=== PATIENT | male | born 1965 | race Caucasian/White ===

== ENCOUNTER 2020-10-22 10:58 | Outpatient (REF) | payer OTHER, SELFPAY ==
[2020-10-22 14:38] LABS: Alanine Aminotransferase 14 U/L (0-40); Anion Gap 11 (12-20); Aspartate Amino Transferase 14 U/L (5-37); Blood Urea Nitrogen 13 mg/dL (9-16); Carbon Dioxide 32 mmol/L (22-29); Chloride 105 mmol/L (96-108); Cholesterol 123 mg/dL; Estimated Glomerular Filt Rate > 60; Glucose Fasting 109 mg/dL (60-99); HDL Cholesterol 46 mg/dL; LDL Cholesterol Calculated 65 mg/dl; Potassium 4.4 mmol/L (3.3-5.1); Sodium 144 mmol/L (135-145); Triglycerides 60 mg/dL
[2020-10-22 15:02] LABS: Vitamin D 25-OH Total 14.7 ng/mL (>30)
[2020-10-23 09:37] LABS: Mumps Virus IgG Antibody <9.00 AU/mL; Rubella IgG Antibody 2.07 Index; Rubeola IgG (Measles) >300.00 AU/mL
[2020-10-24 23:46] LABS: TS Negative Control Passed; TS Panel A 0; TS Panel B 0; TS Positive Control Passed; TSpotTB Negative (SeeBelow)
== END 2020-10-22 10:59 | disposition home or self-care (01) ==
LOC: HO.HMGCLDS 10:58
PROVIDERS: PCP Internal Medicine; Visit Provider Internal Medicine
DX: E78.5 Hyperlipidemia, unspecified (principal); R73.01 Impaired fasting glucose; I10 Essential (primary) hypertension; Z01.84 Encounter for antibody response examination
CPT/HCPCS: 36415; 80048; 80061; 82306; 84450; 84460; 86481; 86735; 86762; 86765

== ENCOUNTER 2021-02-03 07:48 | Day surgery (SDC) | payer OTHER, SELFPAY ==
[2021-01-29 11:55] VITALS: BMI 29.9
--- NOTE | 2021-01-31 08:06 | P.CONAN_ITS ---
Documented by User: Mary Argueta 01/31/21 08:06 HPI - Anesthesia Eval Consult details Narrative: 55yo M Colonoscopy [facility] Active Problems Active Problems: All Active Problems (Updated 01/29/21 @ 11:55 by Steph Trivedi) Vitamin D deficiency (Acute) Dry skin dermatitis (Acute) Immunity status testing (Acute) Impaired fasting glucose (Acute) Cataracts, both eyes (Acute) Dyslipidemia (Acute) Past Medical History Medical History (Updated 02/03/21 @ 09:09 by Isabelle Freeman) Cataracts, both eyes COVID-19 vaccine administered Dry skin dermatitis Dyslipidemia Immunity status testing Impaired fasting glucose Vitamin D deficiency Family History Family History Brother Hx of seizure disorder Surgical History Surgical History Hx of right cataract extraction Hx of vasectomy Social History Social History Are you a primary health care analyst to a significant other at home: No Do you presently have visiting nurse or other home services: No Alcohol intake: never Patient Tobacco Use Status: Never used Tobacco Use of substances other than those prescribed or required for medical reasons: No Have you been hit, kicked, punched, or otherwise hurt by someone within the past year? If so, by whom?: No Are you DNR?: No Advance Directives Information Provided: No Recently lost weight without trying: No Eating poorly because of decreased appetite: No Nutrition Risks: No Nutritional Risk Meds Allergies Allergy/AdvReac Type Severity Reaction Status Date / Time No Known Allergies Allergy Verified 02/03/21 08:22 Exam Exam Date and Time: January 31, 2021 0806 Height,Weight and Vital Signs: Height 5 ft 5 in Weight 81.647 kg Assessment and Plan Assessment Anesthesia Assessment: Chart Reviewed Documented by User: Isabelle Freeman 02/03/21 09:11 PMFSH Past Medical History Medical History (Updated 02/03/21 @ 09:09 by Isabelle Freeman) Cataracts, both eyes COVID-19 vaccine administered Dry skin dermatitis Dyslipidemia Immunity status testing Impaired fasting glucose Vitamin D deficiency Family History Family History Brother Hx of seizure disorder Family history of problems with anesthesia: No Surgical History Surgical History Hx of right cataract extraction Hx of vasectomy History of Problems with Anesthesia: No Social History Social History Are you a primary health care analyst to a significant other at home: No Do you presently have visiting nurse or other home services: No Alcohol intake: never Patient Tobacco Use Status: Never used Tobacco Use of substances other than those prescribed or required for medical reasons: No Have you been hit, kicked, punched, or otherwise hurt by someone within the past year? If so, by whom?: No Are you DNR?: No Advance Directives Information Provided: No Recently lost weight without trying: No Eating poorly because of decreased appetite: No Nutrition Risks: No Nutritional Risk Meds Allergies Allergy/AdvReac Type Severity Reaction Status Date / Time No Known Allergies Allergy Verified 02/03/21 08:22 Exam Height,Weight and Vital Signs: Vital Signs Temp Pulse Resp BP Pulse Ox 02/03/21 08:26 97.5 F 57 18 132/84 96 Airway Mallampati Class: II TM Dist: >3cm Neck ROM: Full Loose/Missing/Broken Teeth: No Heart: RRR Lungs: CTAB Assessment and Plan Assessment Anesthesia Assessment: Anesthesia Plan Discussed and Chart Reviewed Final Anesthetic Review NPO: Yes ASA Class: II Final Preanesthetic Review: No Changes in Pt Med Stat, Meds/Allgs Chart Reviewed, Consent Obtained/Reviewed and Anes Risks/Benef Reviewed Patient Risk: Low Procedure Risk: Low Assessment/Block/Sedation in SS: Assess/Block/Sedation-SS Anesthetic Plan Anesthetic Plan: MAC: Disposition: Standard PACU
[2021-02-03 08:26] VITALS: BP 132/84; PULSE 57; RESP 18; TEMP 36.4; O2SAT 96
[2021-02-03] MEDS: Lactated Ringers 1,000 ML 100 ML IVCONT (08:46)
--- NOTE | 2021-02-03 10:02 | P.BOP_ITS ---
Brief Operative Note Date of Service: 02/03/21 Pre-op diagnosis: Screening Post-op diagnosis: other (Colon polyp) Procedure: Colonoscopy to the cecum with snare polypectomy Surgeon: Estuardo Cook Anesthesia: MAC Was an Central Scheduler used for this Procedure?: No Estimated blood loss (mL): 0 Pathology: other (A. Polyp at 20cm) Condition: stable Disposition: PACU
[2021-02-03 10:04] VITALS: BP 108/79; PULSE 59; RESP 16; TEMP 36.4; O2SAT 100
[2021-02-03 10:17] VITALS: BP 122/75; PULSE 59; RESP 18; O2SAT 96
[2021-02-03 10:29] VITALS: BP 121/71; PULSE 55; RESP 18; TEMP 36.6; O2SAT 96
--- NOTE | 2021-02-03 20:49 | OP_ITS ---
SURGEON: Estuardo Cook MD INDICATIONS: The patient presents for evaluation of colorectal cancer screening. Full consent has been obtained from him for this, including risks of bleeding and perforation. PREOPERATIVE DIAGNOSIS: Colorectal cancer screening. POSTOPERATIVE DIAGNOSIS: PROCEDURE PERFORMED: Colonoscopy to the cecum and terminal ileum with snare polypectomy. ESTIMATED BLOOD LOSS: COMPLICATIONS: ANESTHESIA: Monitored anesthesia care. ASSISTANTS: SPECIMENS: POSTOPERATIVE DIAGNOSES: Colorectal cancer screening, colon polyp, small internal hemorrhoids. DESCRIPTION OF PROCEDURE: The patient was placed in the left lateral decubitus position. The digital rectal exam revealed no abnormalities. The Olympus video pediatric colonoscope was entered into the rectum and advanced easily to the cecum. Once in the cecum, I did identify normal-appearing cecal pouch with appendiceal orifice and a normal-appearing ileocecal valve. The terminal ileum was cannulated and appeared normal. The scope was slowly withdrawn back in the colon. The entire cecum and ileocecal valve appeared normal. The scope was slowly withdrawn assessing all mucosal surfaces carefully. Preparation was excellent. At 20 cm, was an approximately 8 mm polyp, which was snared and recovered by suction. The polypectomy site appeared clean, without any sign of residual polyp nor bleeding. I did not visualize any other polyps, colitis, nor angiodysplasia. In the rectum, scope was retroflexed visualizing small internal hemorrhoids, but no other pathology. The rectal mucosa appeared normal. The scope was straightened out and withdrawn from the patient. He tolerated the procedure well and was returned to the recovery area in stable condition. IMPRESSION: 1. Colon polyp, status post snare polypectomy. 2. Small internal hemorrhoids. PLAN: The results of the pathology will be checked. If the polyp is a tubular adenoma, I would recommend a followup colonoscopy in 5 years. He was advised not to use any aspirin and NSAIDs for 1 week. If the polyp was only hyperplastic and/or inflammatory polyp, I would then recommend a repeat colonoscopy in 10 years instead. MD RIGO Marshall/KINGA / [id number]
== END 2021-02-03 11:10 | disposition home or self-care (01) ==
PROVIDERS: PCP Internal Medicine; Visit Provider Internal Medicine
PROC: 0DJD8ZZ Inspection of Lower Intestinal Tract, Via Natural or Artificial Opening Endoscopic (ICD-10-PCS; CPT 45378; principal; 2021-02-03 09:10)
DX: Z12.11 Encounter for screening for malignant neoplasm of colon (principal); R19.09 Other intra-abdominal and pelvic swelling, mass and lump; D12.5 Benign neoplasm of sigmoid colon; K64.8 Other hemorrhoids; Z79.899 Other long term (current) drug therapy
CPT/HCPCS: 45385; 88305

== ENCOUNTER → 2021-02-28 09:41 | Outpatient (BNVA) | payer OTHER, SELFPAY | PROVIDERS: PCP Internal Medicine; Visit Provider Surgery ==

== ENCOUNTER 2021-03-12 08:17 | Outpatient (REF) | payer OTHER, SELFPAY ==
--- NOTE | ~2021-03-12 | US_ITS ---
EXAMINATION: US PELVIS, LIMITED/FOLLOWUP CLINICAL INFORMATION: Unilateral inguinal hernia. COMPARISON: None TECHNIQUE: Ultrasound of the left inguinal region was performed with the patient in the supine and standing upright position. FINDINGS: There is a defect seen in the abdominal wall medial to the iliac vessels. This contains peristalsing bowel. This is difficult to measure. This measures approximately 5 cm. This is more superior and medial than expected location of an inguinal hernia. US/US pelvic limited IMPRESSION: Left groin hernia containing bowel. This is more superior and medial than expected location of an inguinal hernia.
== END 2021-03-12 08:18 | disposition home or self-care (01) ==
LOC: HO.HMGCX 08:17
PROVIDERS: PCP Internal Medicine; Visit Provider Surgery
DX: K40.90 Unilateral inguinal hernia, without obstruction or gangrene, not specified as recurrent (principal)
CPT/HCPCS: 76857

== ENCOUNTER → 2021-03-20 09:20 | Outpatient (BNVA) | payer OTHER, SELFPAY | PROVIDERS: PCP Internal Medicine; Referring Provider Internal Medicine; Visit Provider Surgery ==

== ENCOUNTER 2021-04-19 09:39 | Outpatient (REF) | payer OTHER, SELFPAY ==
[2021-04-19 12:01] LABS: Alanine Aminotransferase 16 U/L (0-40); Aspartate Amino Transferase 15 U/L (5-37); Cholesterol 123 mg/dL; HDL Cholesterol 37 mg/dL; LDL Cholesterol Calculated 72 mg/dl; Triglycerides 70 mg/dL
[2021-04-19 12:24] LABS: Vitamin D 25-OH Total 52.6 ng/mL (>30)
== END 2021-04-19 09:40 | disposition home or self-care (01) ==
LOC: HO.HMGCLDS 09:39
PROVIDERS: PCP Internal Medicine; Visit Provider Internal Medicine
DX: E55.9 Vitamin D deficiency, unspecified (principal); E78.5 Hyperlipidemia, unspecified
CPT/HCPCS: 36415; 80061; 82306; 84450; 84460

== ENCOUNTER 2021-10-03 09:36 | Day surgery (SDC) | payer OTHER, SELFPAY ==
[2021-09-29 15:11] VITALS: BMI 29.2
[2021-09-29 15:24] VITALS: BMI 30.7
--- NOTE | 2021-10-02 10:34 | P.CONAN_ITS ---
Documented by User: Mary Argueta NP 10/02/21 10:35 HPI - Anesthesia Eval Consult details Narrative: 55yo M for Left Hernia Repair Inguinal with Mesh PMFSH Active Problems Active Problems: All Active Problems (Updated 04/22/21 @ 09:59 by Shara Stone MD) Tubular adenoma of colon (Acute) Left inguinal hernia (Acute) Dry skin dermatitis (Acute) Impaired fasting glucose (Acute) Cataracts, both eyes (Acute) Dyslipidemia (Acute) Past Medical History Medical History Cataracts, both eyes Dry skin dermatitis Dyslipidemia Impaired fasting glucose Tubular adenoma of colon Vitamin D deficiency Family History Family History Brother Hx of seizure disorder Family history of problems with anesthesia: No Surgical History Surgical History Hx of colonoscopy Hx of right cataract extraction Hx of vasectomy History of Problems with Anesthesia: No Social History Social History Housing: House Are you a primary child adolescent care to a significant other at home: No Do you presently have visiting nurse or other home services: No Alcohol intake: never Patient Tobacco Use Status: Never used Tobacco e-Cigarette/Vaping Use: Never Used Second Hand Smoke Exposure: No Use of substances other than those prescribed or required for medical reasons: No Are you DNR?: No Advance Directives: No Advance Directives Information Provided: Yes Advance Directives on File: No Recently lost weight without trying: No Poor oral hygiene: No service: No Current occupational status: employed Meds Allergies Allergy/AdvReac Type Severity Reaction Status Date / Time No Known Allergies Allergy Verified 04/22/21 09:40 Home Medications Medication Instructions Recorded Confirmed Last Taken Type cholecalciferol 25 mcg PO DAILY 04/22/21 09/29/21 Unknown History (vitamin D3) 25 mcg (1,000 unit) capsule Exam Exam Date and Time: October 02, 2021 1034 Height,Weight and Vital Signs: Height 5 ft 5 in Weight 83.915 kg Assessment and Plan Assessment Anesthesia Assessment: Chart Reviewed Final Anesthetic Review Family History of Problems with Anesthesia: No History of Problems with Anesthesia: No Documented by User: Sarah Hess MD 10/03/21 11:23 PMFSH Past Medical History Medical History Cataracts, both eyes Dry skin dermatitis Dyslipidemia Impaired fasting glucose Tubular adenoma of colon Vitamin D deficiency Family History Family History Brother Hx of seizure disorder Surgical History Surgical History Hx of colonoscopy Hx of right cataract extraction Hx of vasectomy Social History Social History Housing: House Are you a primary child adolescent care to a significant other at home: No Do you presently have visiting nurse or other home services: No Alcohol intake: never Patient Tobacco Use Status: Never used Tobacco e-Cigarette/Vaping Use: Never Used Second Hand Smoke Exposure: No Use of substances other than those prescribed or required for medical reasons: No Are you DNR?: No Advance Directives: No Advance Directives Information Provided: Yes Advance Directives on File: No Recently lost weight without trying: No Poor oral hygiene: No service: No Current occupational status: employed Meds Allergies Allergy/AdvReac Type Severity Reaction Status Date / Time No Known Allergies Allergy Verified 04/22/21 09:40 Home Medications Medication Instructions Recorded Confirmed Last Taken Type cholecalciferol 25 mcg PO DAILY 04/22/21 09/29/21 Unknown History (vitamin D3) 25 mcg (1,000 unit) capsule Exam Airway Mallampati Class: II TM Dist: >3cm Neck ROM: Full Loose/Missing/Broken Teeth: No Heart: RRR Lungs: CTA Assessment and Plan Final Anesthetic Review NPO: Yes ASA Class: II Final Preanesthetic Review: Meds/Allgs Chart Reviewed, Consent Obtained/Reviewed and Anes Risks/Benef Reviewed Patient Risk: Low Procedure Risk: Low Anesthetic Plan Anesthetic Plan: GA Disposition: Standard PACU
[2021-10-03] VITALS (10 sets, daily range): BP systolic 119–143; BP diastolic 70–88; PULSE 59–79; RESP 16–20; TEMP 36.4–36.7; O2SAT 92–99
[2021-10-03] MEDS: Lactated Ringers 1,000 ML 100 ML IVCONT (10:25)
--- NOTE | 2021-10-03 14:15 | W.PM.OPN ---
Operative Note Operative Note Date of Service: 10/03/21 Narrative: Preoperative diagnosis: Left inguinal hernia Postoperative diagnosis: Same Procedure: Repair of left inguinal hernia Surgeon: Dony Hamilton MD Fuel Efficient Aircraft Designer: Estrella Barba PA-C Anesthesia: General LMA Indications for procedure: 55 year old male patient with an enlarging left inguinal hernia which increases with lifting and straining and reduces with light pressure. Operative findings:. Patient found to have a large indirect sliding hernia. This was repaired using a extended large PHS mesh Specimen: Lipoma of the cord, hernia sac Estimated blood loss: 10 mL Complications: None Procedure details: Patient was brought to the OR and placed in a supine position. After administering general anesthesia the patient's abdomen was prepped with ChloraPrep and draped in a sterile fashion. A surgical time-out was called the consent confirmed. Patient received preoperative antibiotics and Venodyne boots were in place. Local anesthesia consisting of 0.5% Sensorcaine with epinephrine was infiltrated over the leftinguinal ligament. Incision was then made in oblique fashion over the inguinal ligament. This carried out through subcutaneous tissue past Iain's fashion up to the external oblique aponeurosis. Additional local was infiltrated below the external oblique aponeurosis. This was then incised with a scalpel wide with the Metzenbaum scissors. Spermatic cord was then dissected free from the surrounding inguinal canal and retracted using a [place] drain. The floor of the inguinal canal was examined and no direct hernia was identified. Fibers of the cremasteric muscle were then and an indirect sac was identified. This was dissected down to the internal ring. The sac was then opened and the contents reduced. The sac was found to contain a sliding hernia. A pursestring of 0 Polysorb suture was used to close the hernia sac and the sac divided above this. This was sent as a specimen labeled hernia sac. Also a lipoma of the cord was adjacent to the hernia sac and entered into the internal ring. This was dissected down to the internal ring ligated and divided. This was sent as lipoma of the cord. The hernia sac was plicated to the internal oblique aponeurosis and muscle using a 0 Polysorb suture and a free needle. Attention was then directed to the direct space which was divided between Allis clamps. The preperitoneal space was then created. This was opened further using an open Ray-Stacia sponge. A large extended PHS mesh was then obtained. The circular underlay was placed into the preperitoneal space and deployed. The overlay was then secured to the pubic tubercle conjoined tendon shelving edge of the inguinal ligament using interrupted 0 Polysorb sutures. A slit was made in the mesh and the mesh were wrapped around the spermatic cord at the internal ring. This was then secured to the shelving edge of the inguinal ligament using the 0 Polysorb suture. This was felt to be loose enough to allow the tip of an index finger to pass. Wounds were checked for hemostasis. Wounds were irrigated with saline solution and suctioned dry. External oblique aponeurosis was then closed using a running 2 0 Polysorb suture. Iain's fascia and dermis reapproximated using interrupted 3-0 Polysorb sutures. Skin was then closed using a running subcuticular 4-0 Polysorb suture. Steri-Strips 2 x 2 gauze and Tegaderm were then applied. The patient tolerated the procedure well. Sponge, instrument, needle counts reported as correct. Patient was transferred to PACU in stable condition.
== END 2021-10-03 16:35 | disposition home or self-care (01) ==
PROVIDERS: PCP Internal Medicine; Visit Provider Surgery
PROC: (CPT 49525; principal; 2021-10-03 11:40)
DX: K40.90 Unilateral inguinal hernia, without obstruction or gangrene, not specified as recurrent (principal); D17.6 Benign lipomatous neoplasm of spermatic cord; E78.5 Hyperlipidemia, unspecified; R73.01 Impaired fasting glucose; E55.9 Vitamin D deficiency, unspecified; Z79.899 Other long term (current) drug therapy
CPT/HCPCS: 49525; 88302; 88304; C1781; J0690; J1100; J1170; J1885; J2250; J2405; J3010

== ENCOUNTER → 2021-10-16 13:07 | Outpatient (BNVA) | payer OTHER, SELFPAY | PROVIDERS: PCP Internal Medicine; Referring Provider Internal Medicine; Visit Provider Surgery ==

== ENCOUNTER → 2021-10-28 09:12 | Outpatient (BNVA) | payer OTHER, SELFPAY | PROVIDERS: PCP Internal Medicine; Referring Provider Internal Medicine; Visit Provider Surgery ==

== ENCOUNTER 2022-06-01 09:03 | Outpatient (REF) | payer OTHER, SELFPAY ==
[2022-06-01 11:56] LABS: Alanine Aminotransferase 15 U/L (0-40); Aspartate Amino Transferase 16 U/L (5-37); Cholesterol 150 mg/dL; Glucose Fasting 121 mg/dL (60-99); HDL Cholesterol 45 mg/dL; LDL Cholesterol Calculated 95 mg/dl; Triglycerides 51 mg/dL
[2022-06-01 12:07] LABS: Vitamin D 25-OH Total 59.1 ng/mL (>30)
[2022-06-01 12:10] LABS: Estimated Average Glucose 120 mg/dL; Hemoglobin A1c % 5.8 %
== END 2022-06-01 09:04 | disposition home or self-care (01) ==
LOC: HO.HMGCLDS 09:03
PROVIDERS: PCP Internal Medicine; Visit Provider Internal Medicine
DX: E78.5 Hyperlipidemia, unspecified (principal); R73.01 Impaired fasting glucose; Z86.39 Personal history of other endocrine, nutritional and metabolic disease
CPT/HCPCS: 36415; 80061; 82306; 82947; 83036; 84450; 84460

== ENCOUNTER 2022-09-03 09:47 | Outpatient (REF) | payer OTHER, SELFPAY ==
[2022-09-03 11:54] LABS: Estimated Average Glucose 117 mg/dL; Hemoglobin A1C 148.9149 umol/L; Hemoglobin A1c % 5.7 %
[2022-09-03 12:19] LABS: Alanine Aminotransferase 15 U/L (0-40); Aspartate Amino Transferase 15 U/L (5-37); Cholesterol 127 mg/dL; Glucose Fasting 121 mg/dL (60-99); HDL Cholesterol 43 mg/dL; LDL Cholesterol Calculated 74 mg/dl; Triglycerides 50 mg/dL
== END 2022-09-03 09:48 | disposition home or self-care (01) ==
LOC: HO.HMGCLDS 09:47
PROVIDERS: PCP Internal Medicine; Visit Provider Internal Medicine
DX: Z01.84 Encounter for antibody response examination (principal); R73.01 Impaired fasting glucose; E78.5 Hyperlipidemia, unspecified
CPT/HCPCS: 36415; 80061; 82947; 83036; 84450; 84460; 86735

== ENCOUNTER 2023-05-10 08:53 | Outpatient (AMB) | payer OTHER, SELFPAY ==
--- NOTE | 2023-05-10 08:55 | MHC.OFFVIS ---
Intake Intake Visit Reasons: New Pt - Left Elbow Pain - Requesting Inj Intake Note: Silverio is a 57 year old right hand dominant male who presents today with complaints of left elbow pain. He would like an injection today as he had one with a different doctor in the past. Allergies No Known Allergies Allergy (Verified 05/10/23 08:57) Medication List - Last Reconciled 05/10/23 by Kate Iverson RN atorvastatin 10 mg PO DAILY cholecalciferol (vitamin D3) 25 mcg PO DAILY HPI New Pt - Left Elbow Pain - Requesting Inj HPI Details This is a 57-year-old gentleman with a 2 month history of bilateral lateral elbow pain. He describes difficulty lifting objects specially with left hand. 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 He localizes most of his pain to his left lateral epicondyle. [facility] Medical History (Updated 05/10/23 @ 09:16 by Larry Delarosa MD) Tubular adenoma of colon Vitamin D deficiency Dry skin dermatitis Impaired fasting glucose Cataracts, both eyes Dyslipidemia Surgical History (Updated 09/15/22 @ 11:31 by Shara Stone MD) S/P left inguinal hernia repair (10/03/21) Hx of colonoscopy Hx of right cataract extraction Hx of vasectomy Family History Brother Hx of seizure disorder Social History Housing: House Are you a primary health care marketing specialist to a significant other at home: No Do you presently have visiting nurse or other home services: No Alcohol intake: never Patient Tobacco Use Status: Never used Tobacco e-Cigarette/Vaping Use: Never Used Second Hand Smoke Exposure: No service: No Current occupational status: employed Cognitive needs: No Hearing needs: No Vision needs: Yes Physical Exam Const General: cooperative, healthy appearing, no acute distress, well developed and alert HEENT Head: Yes normal to inspection, Yes normocephalic and Yes atraumatic Mouth: moist mucous membranes Eyes General: appearance normal, both eyes and all related structures EOM: EOMs intact bilaterally Chest Other: no audible wheezing. Resp Other: No audible wheezing Effort & Inspection: normal respiratory effort Cardio Other: Radial pulse palpable with no rythmic abnormalities Back/Spine/Pelvis Cervical Spine: normal cervical lordosis Skin General skin exam: no rashes or lesions noted Neuro General: no focal motor deficits Extrem Other: Left elbow with full range of motion. Positive dynamic resisted wrist flexion test and tenderness over the lateral epicondyle Psych Appearance: grossly normal and well kempt Mental Status: mental status grossly normal Speech and movement: Normal speech and movement present Affect: normal affect Attitude: cooperative Results Reviewed Results Reviewed: 05/10/23 08:59 BUPivacaine MPF 0.25 % [Sensorcaine-MPF 0.25% 10 ML] 10 ml .ROUTE .STK-MED ONE Lidocaine HCl 1 % [Xylocaine 1 %] 2 ml .ROUTE .STK-MED ONE dexAMETHasone sod phosphate [Decadron] 4 mg .ROUTE .STK-MED ONE Assessment & Plan Assessment & Plan (1) Lateral epicondylitis of left elbow: Code(s): M77.12 - Lateral epicondylitis, left elbow Plan: This is a 57-year-old gentleman with left lateral epicondylitis. I reviewed the pathophysiology of this condition with him. I recommend avoidance of excessive lifting activities. We did discuss injections which we deferred on for now and we will try to get a counterforce brace. We are currently out of stock in these and I recommended he order one off [employer]. If he continues to have pain are his pain worsens he will contact me and we will consider injection. Coding Level of Care Code New Pt Level 3 (03856) Diagnoses Lateral epicondylitis of left elbow M77.12
== END 2023-05-10 09:16 | disposition home or self-care (01) ==
PROVIDERS: PCP Internal Medicine; Visit Provider Orthopaedic Surgery
DX: M77.12 Lateral epicondylitis, left elbow (principal)
CPT/HCPCS: 99203; 99213

== ENCOUNTER → 2023-05-10 08:53 | Outpatient (BNVA) | payer OTHER, SELFPAY | PROVIDERS: PCP Internal Medicine; Visit Provider Orthopaedic Surgery | DX: M77.12 Lateral epicondylitis, left elbow (principal) | CPT/HCPCS: J1100 ==

== ENCOUNTER 2023-11-20 06:31 | Outpatient (REF) | payer OTHER, SELFPAY ==
[2023-11-20 11:31] LABS: Estimated Average Glucose 120 mg/dL; Hemoglobin A1c % 5.8 % (<6.0)
[2023-11-20 11:41] LABS: Alanine Aminotransferase 22 U/L (0-40); Aspartate Amino Transferase 21 U/L (5-37); Cholesterol 122 mg/dL (<200); HDL Cholesterol 42 mg/dL (>40); LDL Cholesterol Calculated 65 mg/dL (<100); Triglycerides 75 mg/dL (<150)
== END 2023-11-20 06:32 | disposition home or self-care (01) ==
LOC: HO.HMGCLDS 06:31
PROVIDERS: PCP Internal Medicine; Visit Provider Internal Medicine
DX: E78.5 Hyperlipidemia, unspecified (principal); R73.01 Impaired fasting glucose
CPT/HCPCS: 36415; 80061; 82306; 83036; 84450; 84460

== ENCOUNTER 2024-03-28 10:01 | Outpatient (AMB) | payer OTHER, SELFPAY ==
--- NOTE | 2024-03-28 10:26 | A.OFFPC_ITS ---
Vital Signs 03/28/24 10:41 Height 5 ft 5 in Weight 192 lb BMI 31.9 BP 144/78 H Blood Pressure Location Rt brachial Position Sitting Pulse 62 Pulse Source Pulse Oximeter Pulse Oximetry (%) 98 Oxygen Delivery Method Room Air Intake Visit Reasons: pe Intake Note: Pt is here today for his PE: Last colonoscopy 02/03/21 Allergies No Known Allergies Allergy (Verified 03/28/24 11:03) Medication List - Last Reconciled 03/28/24 by Shara Stone MD atorvastatin 10 mg PO DAILY cholecalciferol (vitamin D3) 25 mcg PO DAILY Tobacco use date assessed: 03/28/24 Dental Screening Dental Screen Date: 03/28/24 Did you have a dental visit in the last 12 months?: Yes Did you have a dental problem in the last 6 months where you did not have access to dental care?: No Was dental information given to patient?: Patient has dentist HPI pe HPI Details 58-year-old male here today for physical exam. He has hyperlipidemia currently on atorvastatin 10 mg daily. He had a screening colonoscopy done in [address] Cook with removal of tubular adenoma polyp. Repeat colonoscopy due again in 5 years. He has been feeling well with no complaints at present time. [facility] Medical History Tubular adenoma of colon Vitamin D deficiency Dry skin dermatitis Impaired fasting glucose Cataracts, both eyes Dyslipidemia Surgical History S/P left inguinal hernia repair (10/03/21) Hx of colonoscopy Hx of right cataract extraction Hx of vasectomy Family History Brother Hx of seizure disorder Social History Housing: House Are you a primary pediatric care coordinator to a significant other at home: No Do you presently have visiting nurse or other home services: No Alcohol intake: never Patient Tobacco Use Status: Never used Tobacco e-Cigarette/Vaping Use: Never Used Second Hand Smoke Exposure: No service: No Current occupational status: employed Cognitive needs: No Hearing needs: No Vision needs: Yes Questionnaire PHQ-9 Over the last 2 weeks, how often have you been bothered by any of the following problems? 2. Feeling down, depressed, or hopeless: not at all 3. Trouble falling or staying asleep, or sleeping too much: not at all 4. Feeling tired or having little energy: not at all 5. Poor appetite or overeating: not at all 6. Feeling bad about yourself - or that you are a failure or have let yourself or your family down: not at all 7. Trouble concentrating on things, such as reading the newspaper or watching television: not at all 8. Moving or speaking so slowly that other people could have noticed. Or the opposite - being so fidgety or restless that you have been moving around a lot more than usual: not at all 9. Thoughts that you would be better off or of hurting yourself in some way: not at all Depression Screening Interpretation: Negative Depression Screening Done: Yes 12022 - PHQ-9 Billing: Yes Source: Developed by Drs. Estuardo De Los Santos, Erika Dowell, Philipp Hagen and colleagues, with an educational archie from [employer]. Thrive Questionnaire Date Thrive assessed: 03/21/24 I am a: Patient What is your living situation today?: I have a steady place to live Within the past 12 months, did the food you bought not last and you didn't have the money to get more?: Never true Within the past 12 months, did you worry whether your food would run out before you got money to buy more?: Never true Do you have trouble paying for medicines?: No Do you have trouble getting transportation to medical appointments?: No Do you have trouble paying your heating and electricity bill?: No Do you have trouble taking care of your child, family member or friend?: No Do you have trouble with day-to-day activities such as bathing, preparing meals, shopping, managing finances, etc.?: No Are you currently unemployed and looking for a job?: No Are you interested in more education?: No Please select the resources that you would like help with: Housing/Skilled Nursing Currently or been in a relationship where the following occur: No concerns reported THRIVE Score: 0 AUDIT C Alcohol Use Questionnaire (AUDIT-C) 1. How often do you have a drink containing alcohol?: Never Total Score: 0 TROY-7 AMB Questionnaire TROY-7 Date TROY - 7 assessed: 09/15/22 Feeling nervous, anxious, or on edge: 0 = Not at all Not being able to stop or control worryin = Not at all Worrying too much about different things: 0 = Not at all Trouble relaxin = Not at all Being so restless that it is hard to sit still: 0 = Not at all Becoming easily annoyed or irritable: 0 = Not at all Feeling afraid as if something awful might happen: 0 = Not at all Total TROY-7 score (0-4 normal; 5-9 mild; 10-14 moderate; 15-21 severe): 0 Source: Developed by Drs. Estuardo De Los Santos, Erika Dowell, Philipp Hagen and colleagues, with an educational archie from [employer]. TROY-7 Assessment Billing TROY-7 Assessment Tool: TROY-7 Assessment 01624 Review of Systems Const Denies body aches, Denies fatigue, Denies fever(s), Denies headache(s) and Denies weakness Eyes Reports no additional complaints ENT Denies dizziness, Denies headache(s), Denies nasal congestion, Denies nasal discharge and Denies sore throat Card Denies chest pain, Denies lightheadedness, Denies palpitations and Denies dyspnea Resp Denies chest congestion, Denies cough, Denies dyspnea and Denies wheezing GI Denies abdominal pain, Denies change in bowel habits and Denies heartburn Denies dysuria, Denies urinary frequency and Denies urinary urgency Musc Denies myalgias, Denies arthralgias, Denies muscle cramps and Denies muscle weakness Skin/Breast Denies lesions and Denies rash Neuro Denies dizziness, Denies headache(s) and Denies weakness Psych Reports no additional complaints Endo Denies fatigue and Denies palpitations Guille/Lymph Reports no additional complaints Aller/Immun Denies wheezing Physical exam (Primary Care) Vital Signs: Last Vital Signs Pulse 62 03/28/24 10:41 BP 144/78 H 03/28/24 10:41 Pulse Ox 98 03/28/24 10:41 Oxygen Delivery Method Room Air 03/28/24 10:41 BMI result Body Mass Index 31.9 BMI Assessment/Plan discussion: High BMI High, discussed plan: lifestyle, weight reduction, dietary and physical activity Tobacco/Smoking Status: Tobacco use Status Tobacco use date assessed 03/28/24 03/28/24 10:44 Patient Tobacco Use Status Never used Tobacco 03/28/24 10:26 e-Cigarette/Vaping Use Never Used 03/28/24 10:26 Depression Screening Interpretation: Negative Thrive Assessment: Date of Thrive Assessment Date Thrive assessed 03/21/24 03/28/24 10:26 Currently or been in a relationship where the following occur: No concerns reported Advance Care Planning discussion: Completed/Scanned Date of discussion: 03/28/24 Who was present: Patient Forms completed: Health Care Proxy and MOLST Time spent: 16-45 minutes Actual minutes spent: 16 Const General: cooperative, comfortable and no acute distress Orientation/consciousness: patient oriented x3 HENMT Head: Yes normocephalic Ears: external ears normal, TM's normal bilaterally and EAC's normal General nose exam: Normal external nose present Face and sinus: Yes face symmetric Mouth: Normal oral and palatal mucosa present, oropharynx normal and moist mucous membranes Eyes General: appearance normal, both eyes and all related structures Neck Neck: Yes full ROM, Yes no lymphadenopathy and Yes supple Thyroid: Thyroid normal Resp Effort & Inspection: normal respiratory effort and able to speak in complete sentences Auscultation: clear to auscultation bilaterally Cardio Rate: regular rate Rhythm: regular rhythm Heart sounds: S1 normal heart sound present and S2 normal heart sound present GI Inspection: Yes normal to inspection Palpation (GI): Soft to palpation, nontender and no masses Auscultation: normal bowel sounds Male General Exam: Yes normal external exam Skin General skin exam: no rashes or lesions noted Neuro General: patient oriented x3, gait normal, tone normal, moves all extremities, Normal light touch and pain sensation and no focal motor deficits Cognition (Neuro): normal cognition Gait exam (Neuro): Normal gait present Extrem General: Yes full ROM, Yes no joint enlargement, Yes no pedal edema, Yes no calf tenderness and Yes normal gait Psych Appearance: grossly normal and well kempt Mental Status: mental status grossly normal Speech and movement: Normal speech and movement present Affect: normal affect Assessment and Plan Assessment & Plan (1) Annual visit for general adult medical examination with abnormal findings: Code(s): Z00.01 - Encounter for general adult medical examination with abnormal findings Plan: Will check appropriate labs. Recommended dental visit every 6 months and regular eye exams, at least every 2 years. Take adequate calcium in diet and vitamin-D 3 at 2000 IU per cap once a day, in addition to weight-bearing exercises to help maintain good muscle tone and weight control. Instructed to do regular self testicular exam to check for any mass. Up-to-date with his screening colonoscopy [place] [address] Cook. Has had COVID vaccines in the past, reminded to get the booster, as well as his yearly flu shot, up-to-date with Tdap, has had 1 shingles vaccine on record, but patient states he has had a 2nd dose already, will check with his pharmacy to get documentation of his 2nd shingles vaccine. (2) Dyslipidemia: Code(s): E78.5 - Hyperlipidemia, unspecified Plan: Fasting lipid panel ordered, currently on atorvastatin 10 mg daily, reinforced importance of following a low-cholesterol diet and getting regular exercise. (3) Impaired fasting glucose: Code(s): R73.01 - Impaired fasting glucose Plan: Your previous fasting blood sugars were elevated above 100 mg/dL. Impaired glucose metabolism increases the risk for developing diabetes mellitus type 2, as well as heart attack and stroke later on. Lifestyle changes that promotes weight loss, healthy eating habits, and regular exercise are important, and can prevent the progression to diabetes. Basic metabolic panel and hemoglobin A1c ordered today. (4) Advanced directives, counseling/discussion: Code(s): Z71.89 - Other specified counseling Plan: Initiated the conversation about Advanced Directives. Advanced Directives help patients prepare for current and future decisions about their medical treatment and place of care. Discussed with patient that it is a process where a patients current condition and prognosis are reviewed, their wishes for information regarding their illness are elicited, and likely medical dilemmas are presented and options discussed. Healthcare proxy form and MOLST form completed today. These forms can be amended as needed, reviewed yearly and make changes as need ed (5) Elevated blood pressure reading: Code(s): R03.0 - Elevated blood-pressure reading, without diagnosis of hypertension Plan: Blood pressure noted to be elevated on this visit. Patient currently asymptomatic. Advised to adhere to a low-salt diet and getting regular exercise. Will have him see nurse navigator in a week or 2 to check his blood pressure readings again Orders: Orders Aspartate Amino Transferase 03/28/24 E78.5 - Hyperlipidemia, unspecified, R73.01 - Impaired fasting glucose Lipid Panel 03/28/24 E78.5 - Hyperlipidemia, unspecified, R73.01 - Impaired fasting glucose Basic Metabolic Panel Fasting 03/28/24 E78.5 - Hyperlipidemia, unspecified, R73.01 - Impaired fasting glucose Vitamin D 25-OH Total 03/28/24 E78.5 - Hyperlipidemia, unspecified, R73.01 - Impaired fasting glucose Alanine Aminotransferase 03/28/24 E78.5 - Hyperlipidemia, unspecified, R73.01 - Impaired fasting glucose Hemoglobin A1c 03/28/24 R73.01 - Impaired fasting glucose Medications: Refilled atorvastatin 10 mg PO DAILY 90 caps 4RF Coding Level of Care Code Est Pt Prev Care 40-64y(55985) Diagnoses Annual visit for general adult medical examination with abnormal findings Z00.01 Dyslipidemia E78.5 Impaired fasting glucose R73.01 Advanced directives, counseling/discussion Z71.89 Elevated blood pressure reading R03.0 Additional Codes TROY-7 Assessment Billing - TRYO-7 Assessment Tool: TROY-7 Assessment 58161 ([id number]) Vital Signs *Quality* - Advance Care Planning discussion: Completed/Scanned ([id number]) Vital Signs *Quality* - Time spent: 16-45 minutes ([id number])
[2024-03-28 10:41] VITALS: BP 144/78; PULSE 62; O2SAT 98; BMI 31.9
== END 2024-03-28 11:31 | disposition home or self-care (01) ==
PROVIDERS: PCP Internal Medicine; Visit Provider Internal Medicine
DX: Z00.00 Encounter for general adult medical examination without abnormal findings (principal); E78.5 Hyperlipidemia, unspecified; R73.01 Impaired fasting glucose; Z71.89 Other specified counseling; R03.0 Elevated blood-pressure reading, without diagnosis of hypertension
CPT/HCPCS: 1123F; 99396; 99497

== ENCOUNTER 2024-03-28 11:32 | Outpatient (REF) | payer OTHER, SELFPAY ==
[2024-03-28 14:20] LABS: Estimated Average Glucose 120 mg/dL; Hemoglobin A1c % 5.8 % (<6.0)
[2024-03-28 14:21] LABS: Alanine Aminotransferase 14 U/L (0-40); Anion Gap 9 (12-20); Aspartate Amino Transferase 16 U/L (5-37); Blood Urea Nitrogen 13 mg/dL (9-16); Carbon Dioxide 30 mmol/L (22-29); Chloride 107 mmol/L (96-108); Cholesterol 121 mg/dL (<200); Estimated Glomerular Filt Rate > 60; Glucose Fasting 132 mg/dL (60-99); HDL Cholesterol 38 mg/dL (>40); LDL Cholesterol Calculated 70 mg/dL (<100); Sodium 142 mmol/L (135-145); Triglycerides 67 mg/dL (<150)
[2024-03-28 14:52] LABS: Vitamin D 25-OH Total 35.3 ng/mL (>30)
== END 2024-03-28 11:33 | disposition home or self-care (01) ==
LOC: HO.HMGCLDS 11:32
PROVIDERS: PCP Internal Medicine; Visit Provider Internal Medicine
DX: E78.5 Hyperlipidemia, unspecified (principal); R73.01 Impaired fasting glucose
CPT/HCPCS: 36415; 80048; 80061; 82306; 83036; 84450; 84460

== ENCOUNTER 2024-04-27 08:58 | Outpatient (REF) | payer OTHER, SELFPAY ==
[2024-04-27 13:37] LABS: Alanine Aminotransferase 15 U/L (0-40); Albumin Level 4.1 g/dL (3.5-5.0); Alkaline Phosphatase 78 U/L (39-117); Anion Gap 10 (12-20); Aspartate Amino Transferase 17 U/L (5-37); Bilirubin Total 0.8 mg/dL (0.0-1.0); Blood Urea Nitrogen 14 mg/dL (9-16); Calcium 9.4 mg/dL (8.4-10.2); Carbon Dioxide 30 mmol/L (22-29); Chloride 107 mmol/L (96-108); Estimated Glomerular Filt Rate > 60; Glucose Random 128 mg/dL (60-115); Potassium 4.4 mmol/L (3.3-5.1); Sodium 143 mmol/L (135-145); Total Protein 7.6 g/dL (6.5-8.0)
== END 2024-04-27 08:59 | disposition home or self-care (01) ==
LOC: HO.HMGCLDS 08:58
PROVIDERS: PCP Internal Medicine; Visit Provider Nurse Practitioner Family
DX: I10 Essential (primary) hypertension (principal)
CPT/HCPCS: 36415; 80053

== ENCOUNTER 2024-05-11 08:47 | Outpatient (REF) | payer OTHER, SELFPAY ==
[2024-05-11 10:30] LABS: Anion Gap 10 (12-20); Blood Urea Nitrogen 15 mg/dL (9-16); Calcium 9.1 mg/dL (8.4-10.2); Carbon Dioxide 29 mmol/L (22-29); Chloride 107 mmol/L (96-108); Estimated Glomerular Filt Rate > 60; Glucose Random 123 mg/dL (60-115); Potassium 4.1 mmol/L (3.3-5.1); Sodium 142 mmol/L (135-145)
== END 2024-05-11 08:48 | disposition home or self-care (01) ==
LOC: HO.HMGCLDS 08:47
PROVIDERS: PCP Internal Medicine; Visit Provider Internal Medicine
DX: I10 Essential (primary) hypertension (principal)
CPT/HCPCS: 36415; 80048

== ENCOUNTER 2024-08-10 10:37 | Outpatient (AMB) | payer OTHER, SELFPAY ==
[2024-08-10 11:18] VITALS: BP 124/80; PULSE 62; O2SAT 97; BMI 31.9
--- NOTE | 2024-08-10 11:18 | MHC.PC.OV ---
Vital Signs 08/10/24 11:18 Height 5 ft 5 in Weight 192 lb BMI 31.9 BP 124/80 Blood Pressure Location Lt brachial Position Sitting Pulse 62 Pulse Source Pulse Oximeter Pulse Oximetry (%) 97 Oxygen Delivery Method Room Air Intake Visit Reasons: 4 month fu Intake Note: Pt is here today for his 4mo. f/u Allergies No Known Allergies Allergy (Verified 08/10/24 11:51) Medication List - Last Reconciled 08/10/24 by Shara Stone MD atorvastatin 10 mg PO DAILY cholecalciferol (vitamin D3) 25 mcg PO DAILY losartan 50 mg PO DAILY Tobacco use date assessed: 08/10/24 Dental Screening Dental Screen Date: 03/28/24 HPI 4 month fu HPI Details 58-year-old male with dyslipidemia and hypertension, losartan 50 mg daily with blood pressure stable controlled on present treatment. He is also taking atorvastatin 10 mg once a day for his hyperlipidemia. Has been compliant with adhering to healthy eating habits and states that he is active at work but no regular exercise reported. Has been noticing some dribbling after urination, with occasional hesitancy, with no nocturia , dysuria or urinary frequency reported, [facility] Medical History (Updated 08/10/24 @ 11:52 by Shara Stone MD) Vitamin D deficiency Tubular adenoma of colon Dry skin dermatitis Impaired fasting glucose Cataracts, both eyes Dyslipidemia Surgical History S/P left inguinal hernia repair (10/03/21) Hx of colonoscopy Hx of right cataract extraction Hx of vasectomy Family History Brother Hx of seizure disorder Social History Housing: House Are you a primary acute care nurse practitioner to a significant other at home: No Do you presently have visiting nurse or other home services: No Alcohol intake: never Patient Tobacco Use Status: Never used Tobacco e-Cigarette/Vaping Use: Never Used Second Hand Smoke Exposure: No service: No Current occupational status: employed Cognitive needs: No Hearing needs: No Vision needs: Yes Questionnaire Thrive Questionnaire Date Thrive assessed: 03/21/24 I am a: Patient What is your living situation today?: I have a steady place to live Within the past 12 months, did the food you bought not last and you didn't have the money to get more?: Never true Within the past 12 months, did you worry whether your food would run out before you got money to buy more?: Never true Do you have trouble paying for medicines?: No Do you have trouble getting transportation to medical appointments?: No Do you have trouble paying your heating and electricity bill?: No Do you have trouble taking care of your child, family member or friend?: No Do you have trouble with day-to-day activities such as bathing, preparing meals, shopping, managing finances, etc.?: No Are you currently unemployed and looking for a job?: No Are you interested in more education?: No Please select the resources that you would like help with: None Currently or been in a relationship where the following occur: No concerns reported THRIVE Score: 0 AUDIT C Alcohol Use Questionnaire (AUDIT-C) 2. How many drinks containing alcohol do you have on a typical day when you are drinking?: 1 or 2 3. How often do you have six or more drinks on one occasion?: Never Total Score: 0 TROY-7 AMB Questionnaire TROY-7 Date TROY - 7 assessed: 09/15/22 Source: Developed by Drs. Estuardo De Los Santos, Erika Dowell, Philipp Hagen and colleagues, with an educational archie from [employer]. Review of Systems Const Denies body aches, Denies fatigue, Denies fever(s), Denies headache(s) and Denies weakness Eyes Reports no additional complaints ENT Denies dizziness, Denies headache(s), Denies nasal congestion, Denies nasal discharge and Denies sore throat Card Denies chest pain, Denies lightheadedness, Denies palpitations and Denies dyspnea Resp Denies chest congestion, Denies cough, Denies dyspnea and Denies wheezing GI Denies abdominal pain, Denies change in bowel habits and Denies heartburn Reports as per HPI Musc Denies myalgias, Denies arthralgias, Denies muscle cramps and Denies muscle weakness Skin/Breast Denies lesions and Denies rash Neuro Denies dizziness, Denies headache(s) and Denies weakness Psych Reports no additional complaints Endo Denies fatigue and Denies palpitations Guille/Lymph Reports no additional complaints Aller/Immun Denies wheezing Physical exam (Primary Care) Vital Signs: Last Vital Signs Pulse 62 08/10/24 11:18 BP 124/80 08/10/24 11:18 Pulse Ox 97 08/10/24 11:18 Oxygen Delivery Method Room Air 08/10/24 11:18 BMI result Body Mass Index 31.9 Tobacco/Smoking Status: Tobacco use Status Tobacco use date assessed 08/10/24 08/10/24 11:52 Patient Tobacco Use Status Never used Tobacco 08/10/24 11:20 e-Cigarette/Vaping Use Never Used 08/10/24 11:20 Thrive Assessment: Date of Thrive Assessment Date Thrive assessed 03/21/24 08/10/24 11:20 Currently or been in a relationship where the following occur: No concerns reported Const General: comfortable and no acute distress Orientation/consciousness: patient oriented x3 HENMT Ears: external ears normal, TM's normal bilaterally and EAC's normal General nose exam: Normal external nose present Face and sinus: Yes face symmetric Mouth: Normal oral and palatal mucosa present, oropharynx normal and moist mucous membranes Eyes General: appearance normal, both eyes and all related structures Neck Neck: Yes full ROM, Yes no lymphadenopathy and Yes supple Thyroid: Thyroid normal Resp Effort & Inspection: normal respiratory effort and able to speak in complete sentences Auscultation: clear to auscultation bilaterally Cardio Rate: regular rate Rhythm: regular rhythm Heart sounds: S1 normal heart sound present and S2 normal heart sound present GI Inspection: Yes normal to inspection Palpation (GI): Soft to palpation, nontender and no masses Auscultation: normal bowel sounds Male General Exam: Yes normal external exam Neuro General: patient oriented x3, gait normal, tone normal, moves all extremities, Normal light touch and pain sensation and no focal motor deficits Cognition (Neuro): normal cognition Gait exam (Neuro): Normal gait present Extrem General: Yes full ROM, Yes no joint enlargement, Yes no pedal edema, Yes no calf tenderness and Yes normal gait Office Procedures Flu Questionnaire Does the patient have a severe egg allergy?: No Does the patient have severe life threatening allergies?: No Does the patient have a fever or illness today?: No Has the patient ever had Guillain-[place] Syndrome?: No Has the patient ever had any past reaction to a flu shot?: No Immunizations Fluarix Triv 2549-6934 (PF) 45 mcg (15 mcg x 3)/0.5 mL IM syringe Performing Provider: Shara Stone MD Performing Location: [facility] [place] Adult Primary Care-[facility] Administered by: Mayra Ro CMA on 08/10/24 11:55 Dose Route Admin Location Dispensed Lot Number Expiration Date NDC Technical Programs Manager 0.5 mL IM Left Deltoid 0.5 mL [id number] 02/26/25 [id number] [employer] VIS Given Date VIS Provided VIS Publication Date 08/10/24 Single Vaccine 21 Eligibility Eligibility Date Funding Source Not [facility] Eligible 08/10/24 Private Results Reviewed Results Reviewed: Name: Silverio Khan Age/Sex: 58/M : 1965 Unit#: [id number] Attend Dr: Shara Stone MD Re08/10/24 Status: DEP REF Location: [facility] Disch: SPEC : [id number] MITZI: 08/10/24-1220 STATUS: COMP REQ : [id number] RECD: 08/10/24-[address]: Shara Stone MD COMP: 08/10/24-1406 ENTERED: 08/10/24-[address]: ORDERED: Met Prof Fast, AST, ALT, Lipid Panel, Vitamin D 25-OH Test Result Flag Reference Sodium 144 135-145 mmol/L Potassium 4.5 3.3-5.1 mmol/L CL 106 96-108 mmol/L CO2 30 H 22-29 mmol/L Gap 13 12-20 BUN 17 H 9-16 mg/dL Creat 0.87 0.5-1.4 mg/dL eGFR > 60 Chronic Kidney Disease: Estimated GFR < 60 mL/min/1.73m2 Severe Kidney Disease: Estimated GFR < 15 mL/min/1.73m2 FBS 116 H 60-99 mg/dL A fasting glucose from 100-125 mg/dl is considered impaired (pre-diabetes). CA 9.9 # 8.4-10.2 mg/dL AST (GOT) 23 5-37 U/L ALT (GPT) 26 0-40 U/L Triglyceride 47 <150 mg/dL Desirable Triglyceride: less than 150 mg/dL Borderline High Triglyceride 150-199 mg/dL High Triglyceride: 200-499 mg/dL Very High Triglyceride: greater than or equal to 5OO mg/dL Cholesterol 124 <200 mg/dL Desirable Cholesterol: less than 200 mg/dL Borderline High Cholesterol: 200-239 mg/dL High Cholesterol: greater than 239 mg/dL LDL Calculated 73 <100 mg/dL Desirable LDL: less than 100 mg/dL Near Optimal/Above Optimal LDL: 110-129 mg/dL Borderline High LDL: 130-159 mg/dL High LDL: 160-189 mg/dL Very High LDL: greater than or equal to 190 mg/dL HDL 42 >40 mg/dL Desirable HDL: greater than 40 mg/dL Note: This HDL assay may give artificially low results in patients with liver disease. Vit D 25-OH Tot 34.9 >30 ng/mL Health Based Reference Values* < 20 ng/mL Deficient 20-30 ng/mL Insufficient > 30 ng/mL Sufficient Coding Level of Care Code Est Pt Level 4 (99300) Complex EM visit Add On G2211 Diagnoses Dyslipidemia E78.5 Impaired fasting glucose R73.01 HTN (hypertension) I10 Urinary hesitancy R39.11 Dribbling of urine N39.43 Assessment & Plan Assessment & Plan (1) Dyslipidemia: Code(s): E78.5 - Hyperlipidemia, unspecified Category: Medical Plan: Fasting labs ordered today. . Continue atorvastatin 10 mg daily , in addition to adherence to low-cholesterol diet and regular exercise, at least 30 minutes 3 to 4 times a week. Advised patient to make healthy food choices, eat more fruits, vegetables, whole grains, wild caught fish and low-fat dairy. Limit amount of meat and fried or fatty food products, as well as processed foods and fast foods. (2) Impaired fasting glucose: Code(s): R73.01 - Impaired fasting glucose Category: Medical Plan: Your previous fasting blood sugars were elevated above 100 mg/dL. Impaired glucose metabolism increases the risk for developing diabetes mellitus type 2, as well as heart attack and stroke later on. Lifestyle changes that promotes weight loss, healthy eating habits, and regular exercise are important, and can prevent the progression to diabetes (3) HTN (hypertension): Code(s): I10 - Essential (primary) hypertension Category: Medical Plan: Blood pressure at goal of less than 130/80. Continue with current medication. Reinforced importance of following a low sodium diet, getting regular exercise, and lowering stress levels. (4) Urinary hesitancy: Code(s): R39.11 - Hesitancy of micturition Plan: Ordered total and free PSA level and urinalysis (5) Dribbling of urine: Code(s): N39.43 - Post-void dribbling Plan: ordered total and free PSA level and urinalysis Orders: Orders Lipid Panel 08/10/24 E55.9 - Vitamin D deficiency, unspecified, E78.5 - Hyperlipidemia, unspecified, I10 - Essential (primary) hypertension, R73.01 - Impaired fasting glucose Basic Metabolic Panel Fasting 08/10/24 E55.9 - Vitamin D deficiency, unspecified, E78.5 - Hyperlipidemia, unspecified, I10 - Essential (primary) hypertension, R73.01 - Impaired fasting glucose Influenza [id number] Immunization 08/10/24 Z23 - Encounter for immunization PSA,Total (Free>4and<10) 08/10/24 N39.43 - Post-void dribbling, R39.11 - Hesitancy of micturition UA and rflx microscopic 08/10/24 N39.43 - Post-void dribbling, R39.11 - Hesitancy of micturition Aspartate Amino Transferase 08/10/24 E55.9 - Vitamin D deficiency, unspecified, E78.5 - Hyperlipidemia, unspecified, I10 - Essential (primary) hypertension, R73.01 - Impaired fasting glucose Alanine Aminotransferase 08/10/24 E55.9 - Vitamin D deficiency, unspecified, E78.5 - Hyperlipidemia, unspecified, I10 - Essential (primary) hypertension, R73.01 - Impaired fasting glucose Vitamin D 25-OH Total 08/10/24 E55.9 - Vitamin D deficiency, unspecified, E78.5 - Hyperlipidemia, unspecified, I10 - Essential (primary) hypertension, R73.01 - Impaired fasting glucose
== END 2024-08-10 12:07 | disposition home or self-care (01) ==
PROVIDERS: PCP Internal Medicine; Visit Provider Internal Medicine
DX: E78.5 Hyperlipidemia, unspecified (principal); R73.01 Impaired fasting glucose; I10 Essential (primary) hypertension; R39.11 Hesitancy of micturition; N39.43 Post-void dribbling

== ENCOUNTER 2024-08-10 10:37 | Outpatient (REF) | payer OTHER, SELFPAY ==
[2024-08-10 13:54] LABS: Appearance Urine Clear; Color Urine Yellow; Glucose Urine UA Negative (Negative); Leukocyte Esterase Urine Negative (Negative); Nitrite Urine Negative (Negative); PH 6.5 (5.0-9.0); Urine Blood Negative (Negative); Urine Ketones Negative (Negative); Urine Protein Negative (Neg-Trace)
[2024-08-10 14:02] LABS: PSA,Total (Free>4and<10) 0.85 ng/mL (0.00-4.00)
[2024-08-10 14:06] LABS: Alanine Aminotransferase 26 U/L (0-40); Anion Gap 13 (12-20); Aspartate Amino Transferase 23 U/L (5-37); Blood Urea Nitrogen 17 mg/dL (9-16); Calcium 9.9 mg/dL (8.4-10.2); Carbon Dioxide 30 mmol/L (22-29); Chloride 106 mmol/L (96-108); Cholesterol 124 mg/dL (<200); Estimated Glomerular Filt Rate > 60; Glucose Fasting 116 mg/dL (60-99); HDL Cholesterol 42 mg/dL (>40); LDL Cholesterol Calculated 73 mg/dL (<100); Potassium 4.5 mmol/L (3.3-5.1); Sodium 144 mmol/L (135-145); Triglycerides 47 mg/dL (<150); Vitamin D 25-OH Total 34.9 ng/mL (>30)
== END 2024-08-10 10:38 | disposition home or self-care (01) ==
LOC: HO.HMGCLDS 10:37
PROVIDERS: PCP Internal Medicine; Visit Provider Internal Medicine
DX: E78.5 Hyperlipidemia, unspecified (principal); R73.01 Impaired fasting glucose; I10 Essential (primary) hypertension; R39.11 Hesitancy of micturition; N39.43 Post-void dribbling; E55.9 Vitamin D deficiency, unspecified; Z79.899 Other long term (current) drug therapy; Z23 Encounter for immunization; Z12.5 Encounter for screening for malignant neoplasm of prostate
CPT/HCPCS: 36415; 80048; 80061; 81003; 82306; 84153; 84450; 84460; 90471; 90656

== ENCOUNTER 2025-03-29 12:46 | Outpatient (AMB) | payer OTHER, SELFPAY ==
--- NOTE | 2025-03-29 12:49 | A.OFFPC_ITS ---
Vital Signs 03/29/25 12:50 Height 5 ft 5 in Weight 184 lb 8 oz BMI 30.7 BP 128/80 Blood Pressure Location Lt brachial Position Sitting Pulse 67 Pulse Source Pulse Oximeter Temp 98.2 F Temp Source Oral Pulse Oximetry (%) 98 Oxygen Delivery Method Room Air Intake Visit Reasons: Annual PE Intake Note: pt is here for PE, last colonoscopy was 2020 and recall is 5 years from then Retention Specialist Required: No Accompanied by: Self / Same As Patient Allergies No Known Allergies Allergy (Verified 03/29/25 13:07) Medication List - Last Reconciled 03/29/25 by Shara Stone MD atorvastatin 10 mg PO DAILY cholecalciferol (vitamin D3) 25 mcg PO DAILY losartan 50 mg PO DAILY Tobacco use date assessed: 03/29/25 Dental Screening Dental Screen Date: 03/29/25 Did you have a dental visit in the last 12 months?: Yes Did you have a dental problem in the last 6 months where you did not have access to dental care?: No Was dental information given to patient?: Patient has dentist HPI Annual PE HPI Details 51-year-old male with history of hyperte nsion and dyslipidemia, here today for his physical exam. He has been feeling well, with no complaints at present time. Has been compliant with taking his medications, currently on losartan 50 mg once a day for control of his blood pressure, and takes atorvastatin 10 mg daily for his elevated lipids. Has been compliant with taking his medications, following recommended diet and stays active at work , but no formal exercise. He had a screening colonoscopy done in 2020, done by Dr. Cook with removal of a tubular adenoma polyp, due again for a repeat screening in 2025. He is up-to-date with all his vaccinations but does not get further COVID boosters. Up-to-date with his eye exam, only wears reading glasses PFSH Medical History Vitamin D deficiency Tubular adenoma of colon Dry skin dermatitis Impaired fasting glucose Cataracts, both eyes Dyslipidemia Surgical History S/P left inguinal hernia repair (10/03/21) Hx of colonoscopy Hx of right cataract extraction Hx of vasectomy Family History Brother Hx of seizure disorder Social History Housing: House Are you a primary primary care coordinator to a significant other at home: No Do you presently have visiting nurse or other home services: No Alcohol intake: never Patient Tobacco Use Status: Never used Tobacco e-Cigarette/Vaping Use: Never Used Second Hand Smoke Exposure: No service: No Current occupational status: employed Cognitive needs: No Hearing needs: No Vision needs: Yes Questionnaire PHQ-9 Over the last 2 weeks, how often have you been bothered by any of the following problems? 1. Little interest or pleasure in doing things: not at all 2. Feeling down, depressed, or hopeless: not at all 3. Trouble falling or staying asleep, or sleeping too much: not at all 4. Feeling tired or having little energy: not at all 5. Poor appetite or overeating: not at all 6. Feeling bad about yourself - or that you are a failure or have let yourself or your family down: not at all 7. Trouble concentrating on things, such as reading the newspaper or watching television: not at all 8. Moving or speaking so slowly that other people could have noticed. Or the opposite - being so fidgety or restless that you have been moving around a lot more than usual: not at all 9. Thoughts that you would be better off or of hurting yourself in some way: not at all Total score: 0 Depression Screening Interpretation: Negative Depression Screening Done: Yes 47405 - PHQ-9 Billing: Yes Source: Developed by Drs. Estuardo De Los Santos, Erika Dowell, Philipp Hagen and colleagues, with an educational archie from [employer]. Thrive Questionnaire Date Thrive assessed: 03/22/25 I am a: Patient What is your living situation today?: I have a steady place to live Within the past 12 months, did the food you bought not last and you didn't have the money to get more?: Never true Within the past 12 months, did you worry whether your food would run out before you got money to buy more?: Never true Do you have trouble paying for medicines?: No Do you have trouble getting transportation to medical appointments?: No Do you have trouble paying your heating and electricity bill?: No Do you have trouble taking care of your child, family member or friend?: No Do you have trouble with day-to-day activities such as bathing, preparing meals, shopping, managing finances, etc.?: No Are you currently unemployed and looking for a job?: No Are you interested in more education?: No Please select the resources that you would like help with: None Currently or been in a relationship where the following occur: No concerns reported THRIVE Score: 0 AUDIT C Alcohol Use Questionnaire (AUDIT-C) 1. How often do you have a drink containing alcohol?: Never 3. How often do you have six or more drinks on one occasion?: Never Total Score: 0 Score Reviewed/Action Taken: Yes TROY-7 AMB Questionnaire TROY-7 Date TROY - 7 assessed: 03/29/25 Feeling nervous, anxious, or on edge: 0 = Not at all Not being able to stop or control worryin = Not at all Worrying too much about different things: 0 = Not at all Trouble relaxin = Not at all Being so restless that it is hard to sit still: 0 = Not at all Becoming easily annoyed or irritable: 0 = Not at all Feeling afraid as if something awful might happen: 0 = Not at all Total TROY-7 score (0-4 normal; 5-9 mild; 10-14 moderate; 15-21 severe): 0 Source: Developed by Drs. Estuardo De Los Santos, Erika Dowell, Philipp Hagen and colleagues, with an educational archie from [employer]. TROY-7 Assessment Billing TROY-7 Assessment Tool: TROY-7 Assessment 54631 Review of Systems Const Denies body aches, Denies fatigue, Denies fever(s), Denies headache(s) and Denies weakness Eyes Reports no additional complaints ENT Denies dizziness and Denies headache(s) Card Denies chest pain, Denies lightheadedness, Denies palpitations and Denies dyspnea Resp Denies chest congestion, Denies cough, Denies dyspnea and Denies wheezing GI Denies abdominal pain, Denies change in bowel habits and Denies heartburn Reports as per HPI Musc Denies myalgias, Denies arthralgias, Denies muscle cramps and Denies muscle weakness Skin/Breast Denies lesions and Denies rash Neuro Denies dizziness, Denies headache(s) and Denies weakness Psych Reports no additional complaints Endo Denies fatigue and Denies palpitations Guille/Lymph Reports no additional complaints Aller/Immun Denies wheezing Physical exam (Primary Care) Vital Signs: Last Vital Signs Temp 98.2 F 03/29/25 12:50 Pulse 67 03/29/25 12:50 BP 128/80 03/29/25 12:50 Pulse Ox 98 03/29/25 12:50 Oxygen Delivery Method Room Air 03/29/25 12:50 BMI result Body Mass Index 30.7 Tobacco/Smoking Status: Tobacco use Status Tobacco use date assessed 03/29/25 03/29/25 12:51 Patient Tobacco Use Status Never used Tobacco 03/29/25 12:51 e-Cigarette/Vaping Use Never Used 03/29/25 12:51 PHQ-9: PHQ-9 Score PHQ-9: Total score 0 03/29/25 12:51 Depression Screening Interpretation: Negative Thrive Assessment: Date of Thrive Assessment Date Thrive assessed 03/22/25 03/29/25 12:51 Currently or been in a relationship where the following occur: No concerns reported Const General: comfortable and no acute distress Orientation/consciousness: patient oriented x3 HENMT Ears: external ears normal, TM's normal bilaterally and EAC's normal General nose exam: Normal external nose present Face and sinus: Yes face symmetric Mouth: Normal oral and palatal mucosa present, oropharynx normal and moist mucous membranes Eyes General: appearance normal, both eyes and all related structures Neck Neck: Yes full ROM, Yes no lymphadenopathy and Yes supple Thyroid: Thyroid normal Resp Effort & Inspection: normal respiratory effort and able to speak in complete sentences Auscultation: clear to auscultation bilaterally Cardio Rate: regular rate Rhythm: regular rhythm Heart sounds: S1 normal heart sound present and S2 normal heart sound present GI Inspection: Yes normal to inspection Palpation (GI): Soft to palpation, nontender and no masses Auscultation: normal bowel sounds General: Yes no CVA tenderness Male General Exam: Yes normal external exam Back/Spine/Pelvis Back: no CVA tenderness and No back tenderness Skin General skin exam: no rashes or lesions noted Neuro General: patient oriented x3, gait normal, tone normal, moves all extremities, Normal light touch and pain sensation and no focal motor deficits Cognition (Neuro): normal cognition Gait exam (Neuro): Normal gait present Extrem General: Yes full ROM, Yes no joint enlargement, Yes no pedal edema, Yes no calf tenderness and Yes normal gait Psych Appearance: grossly normal and well kempt Mental Status: mental status grossly normal Speech and movement: Normal speech and movement present Affect: normal affect Coding Level of Care Code Est Pt Prev Care 40-64y(60694) Diagnoses Annual visit for general adult medical examination with abnormal findings Z00.01 Dyslipidemia E78.5 Impaired fasting glucose R73.01 Vitamin D deficiency E55.9 Primary hypertension I10 Hypertension type: primary hypertension Additional Codes TROY-7 Assessment Billing - TROY-7 Assessment Tool: TROY-7 Assessment 71500 ([id number]) PHQ-9 - 29135 - PHQ-9 Billing: Yes ([id number]) Assessment & Plan Assessment & Plan (1) Annual visit for general adult medical examination with abnormal findings: Code(s): Z00.01 - Encounter for general adult medical examination with abnormal findings Plan: Will check appropriate labs. Recommended dental visit every 6 months and regular eye exams, at least every 2 years. Take adequate calcium in diet and vitamin-D 3 at 2000 IU per cap once a day, in addition to weight-bearing exercises to help maintain good muscle tone and weight control. Instructed to do self-testicular exam check for any mass. Reminded that he needs an updated colonoscopy screening next year with Dr. Cook up-to-date with all his vaccines (2) Dyslipidemia: Code(s): E78.5 - Hyperlipidemia, unspecified Category: Medical Plan: Fasting lipid panel ordered today. Currently on atorvastatin 10 mg daily (3) Impaired fasting glucose: Code(s): R73.01 - Impaired fasting glucose Category: Medical Plan: Your previous fasting blood sugars were elevated above 100 mg/dL. Impaired glucose metabolism increases the risk for developing diabetes mellitus type 2, as well as heart attack and stroke later on. Lifestyle changes that promotes weight loss, healthy eating habits, and regular exercise are important, and can prevent the progression to diabetes. Fasting blood sugar and hemoglobin A1c ordered today. (4) Vitamin D deficiency: Code(s): E55.9 - Vitamin D deficiency, unspecified Category: Medical Plan: Ordered a vitamin-D level check, currently on cholecalciferol 25 mcg daily (5) HTN (hypertension): Code(s): I10 - Essential (primary) hypertension Category: Medical Qualifiers: Hypertension type: primary hypertension Qualified Code(s): I10 - Essential (primary) hypertension Plan: Blood pressure stable and controlled on present dose of losartan 50 mg daily. Ordered a basic metabolic panel Orders: Orders PSA,Total (Free>4and<10) Today E55.9 - Vitamin D deficiency, unspecified, E78.5 - Hyperlipidemia, unspecified, I10 - Essential (primary) hypertension, R73.01 - Impaired fasting glucose Aspartate Amino Transferase Today E55.9 - Vitamin D deficiency, unspecified, E78.5 - Hyperlipidemia, unspecified, I10 - Essential (primary) hypertension, R73.01 - Impaired fasting glucose Alanine Aminotransferase Today E55.9 - Vitamin D deficiency, unspecified, E78.5 - Hyperlipidemia, unspecified, I10 - Essential (primary) hypertension, R73.01 - Impaired fasting glucose Basic Metabolic Panel Fasting Today E55.9 - Vitamin D deficiency, unspecified, E78.5 - Hyperlipidemia, unspecified, I10 - Essential (primary) hypertension, R73.01 - Impaired fasting glucose Lipid Panel Today E55.9 - Vitamin D deficiency, unspecified, E78.5 - Hyperlipidemia, unspecified, I10 - Essential (primary) hypertension, R73.01 - Impaired fasting glucose Hemoglobin A1c Today E55.9 - Vitamin D deficiency, unspecified, E78.5 - Hyperlipidemia, unspecified, I10 - Essential (primary) hypertension, R73.01 - Impaired fasting glucose Vitamin D 25-OH Total Today E55.9 - Vitamin D deficiency, unspecified, E78.5 - Hyperlipidemia, unspecified, I10 - Essential (primary) hypertension, R73.01 - Impaired fasting glucose
[2025-03-29 12:50] VITALS: BP 128/80; PULSE 67; TEMP 36.8; O2SAT 98; BMI 30.7
--- OUTSIDE RECORDS SUMMARY | 2025-03-29 12:56 | XMS_ITS | Patient Health Record ---
Author Organization [facility] Address [address] [place] [id number] Care Team Providers Care Android Software Engineer Name Role Phone Bertha DAVIS, Shara Primary Care Provider Estuardo Raines [facility] [phone] Reason For Referral No Information Medications Medication SIG (Take, Route, Frequency, Duration) Notes Start Date End Date Status Atorvastatin Calcium 10 MG 1 tablet Oral ly Once a day for 30 day(s) Active Vitamin D Active Immunizations Vaccine Route Administration Date Status Comme nts Influenza Unknown 05/30/2020 Administered Social History Tobacco Use: Social History Observation Description Date Details (start date - stop date) Never Smoker NA - NA Tobacco Use/Smoking Question Answer Notes Patient is a nonsmoker Alcohol Screen Question Answer Notes Did you have a drink containing alcohol in the p ast year? No Points 0 Interpretation Negative Section Notes: Nonsmoker; no sig alcohol Problems Problem Type SNOMED Code ICD Code Onset Dates Problem Status W/U Status Risk Notes Problem 750884946 Encounter for screening for malignant neoplasm of colon (Z12.11) Active confirmed Problem [id number] Preprocedural examination (Z01.818) Active confirmed Problem [id number] Inguinal bulge (R19.09) Active confirmed Plan Of Treatment Future Test Test Name Order Date COLONOSCOPY 01/09/2021 Insurance Providers Payer Name Payer Address Payer Phone Subscriber Number Group Number Insured Name Patient Relationship to Insured Coverage Start Date Coverage End Date [employer] [address] [place] [address] [id number] TACHO BUSH Self - patient is the insured Medical (General) History Medical History History ICD Code Denies IN,DM,CVA,Lung disease,renal dise ase Hyperlipidemia Surgical History Surgery Date(Month/Year) Vasectomy Right cataract with a lens implant
== END 2025-03-29 13:24 | disposition home or self-care (01) ==
LOC: HO.HMCC 12:47
PROVIDERS: PCP Internal Medicine; Visit Provider Internal Medicine
DX: Z00.01 Encounter for general adult medical examination with abnormal findings (principal); E78.5 Hyperlipidemia, unspecified; R73.01 Impaired fasting glucose; E55.9 Vitamin D deficiency, unspecified; I10 Essential (primary) hypertension

== ENCOUNTER 2025-03-29 12:46 | Outpatient (REF) | payer OTHER, SELFPAY ==
[2025-03-29 16:00] LABS: Hemoglobin A1C 166.2429 umol/L; Total Hemoglobin (HGBA1C) 3933.6232 umol/L
[2025-03-29 16:18] LABS: Alanine Aminotransferase 20 U/L (0-40); Anion Gap 11 (12-20); Aspartate Amino Transferase 23 U/L (5-37); Blood Urea Nitrogen 13 mg/dL (9-16); Calcium 8.9 mg/dL (8.4-10.2); Carbon Dioxide 31 mmol/L (22-29); Chloride 107 mmol/L (96-108); Cholesterol 122 mg/dL (<200); Estimated Glomerular Filt Rate > 60; HDL Cholesterol 39 mg/dL (>40); Potassium 4.7 mmol/L (3.3-5.1); Sodium 144 mmol/L (135-145); Triglycerides 43 mg/dL (<150)
[2025-03-29 16:23] LABS: PSA,Total (Free>4and<10) 1.93 ng/mL (0.00-4.00)
== END 2025-03-29 12:47 | disposition home or self-care (01) ==
LOC: HO.HMGCLDS 12:46
PROVIDERS: PCP Internal Medicine; Visit Provider Internal Medicine
DX: Z00.01 Encounter for general adult medical examination with abnormal findings (principal); E78.5 Hyperlipidemia, unspecified; R73.01 Impaired fasting glucose; E55.9 Vitamin D deficiency, unspecified; I10 Essential (primary) hypertension; Z79.899 Other long term (current) drug therapy; Z12.5 Encounter for screening for malignant neoplasm of prostate; Z13.31 Encounter for screening for depression; Z13.39 Encounter for screening examination for other mental health and behavioral disorders
CPT/HCPCS: 36415; 80048; 80061; 82306; 83036; 84153; 84450; 84460; 96127

== ENCOUNTER 2025-06-19 08:52 | Outpatient (REF) | payer OTHER, SELFPAY ==
--- OUTSIDE RECORDS SUMMARY | 2025-06-19 10:55 | XMS_ITS | Patient Health Record ---
Author Organization [facility] Address [address] [place] [id number] Care Team Providers Care Director Erp Name Role Phone Bertha ADVIS, Shara Primary Care Provider Estuardo Raines [phone] Reason For Referral No Information Medications Medication SIG (Take, Route, Frequency, Duration) Notes Start Date End Date Status Atorvastatin Calcium 10 MG 1 tablet Oral ly Once a day; Duration: 30 day(s) Active Vitamin D Active Immunizations [...] Problem Status W/U Status Risk Notes Problem Screening for malignant neoplasm of colon (157686913) Encounter for screening for malignant neoplasm of colon (Z12.11) Active confirmed Problem Preprocedural examination ([id number]) Preprocedural examination (Z01.818) Active confirmed Problem Inguinal bulge (R19.09) Active confirmed Plan Of Treatment Future Test Test Name Order Date COLONOSCOPY 01/09/2021 Insurance Providers Payer Name Payer Address Payer Phone Subscriber Number Group Number Insured Name Patient Relationship to Insured Coverage Start Date Coverage End Date [employer] [address] [place], [place] [address] [id number] TACHO BUSH Self - patient is the insured Medical (General) History Medical History History ICD Code Denies MA,DM,CVA,Lung disease,renal dise ase Hyperlipidemia Surgical History Surgery Date(Month/Year) Vasectomy Right cataract with a lens implant
[2025-06-19 13:43] LABS: MANUAL DIFF FLAG NO
[2025-06-19 13:56] LABS: Hematocrit 43.6 % (42.0-52.0); Hemoglobin 14.2 g/dl (14.0-18.0); Imm Gran Abs Auto 0.02 X10*3/uL (0.00-0.03); Imm Gran Pct Auto 0.3 % (0.0-0.4); Lymphocytes Absolute Auto 1.9 X10*3/uL (1.2-4.9); Mean Corpuscular HGB Conc 32.6 g/dl (31.0-36.0); Mean Corpuscular Hemoglobin 28.3 pg (27.0-33.0); Mean Corpuscular Volume 87.0 fL (80.0-98.0); NRBC Abs Auto 0.000 X10*3/uL (0.0-0.012); NRBC Pct Auto 0.0 /100WBC (0.0-0.2); Platelet Count 186 X10*3/uL (160-400); Red Blood Count 5.01 X10*6/uL (4.60-5.80); White Blood Count 7.9 X10*3/uL (4.8-10.8)
[2025-06-19 14:36] LABS: Hemoglobin A1C 151.1795 umol/L; Total Hemoglobin (HGBA1C) 3637.5848 umol/L
[2025-06-19 16:36] LABS: Alanine Aminotransferase 16 U/L (0-40); Anion Gap 12 (12-20); Aspartate Amino Transferase 36 U/L (5-37); Blood Urea Nitrogen 19 mg/dL (9-16); Calcium 8.7 mg/dL (8.4-10.2); Carbon Dioxide 29 mmol/L (22-29); Chloride 107 mmol/L (96-108); Cholesterol 106 mg/dL (<200); Estimated Glomerular Filt Rate > 60; HDL Cholesterol 37 mg/dL (>40); Potassium 4.0 mmol/L (3.3-5.1); Sodium 144 mmol/L (135-145); Triglycerides 93 mg/dL (<150)
== END 2025-06-19 08:53 | disposition home or self-care (01) ==
LOC: HO.HMGCLDS 08:52
PROVIDERS: PCP Internal Medicine; Visit Provider Internal Medicine
DX: I10 Essential (primary) hypertension (principal); K40.90 Unilateral inguinal hernia, without obstruction or gangrene, not specified as recurrent; E78.5 Hyperlipidemia, unspecified; R73.01 Impaired fasting glucose; R23.3 Spontaneous ecchymoses
CPT/HCPCS: 36415; 80048; 80061; 83036; 84450; 84460; 85025

== ENCOUNTER 2025-06-19 08:52 | Outpatient (AMB) | payer OTHER, SELFPAY ==
--- NOTE | 2025-06-19 09:03 | A.OFFPC_ITS ---
Vital Signs 06/19/25 09:04 Height 5 ft 5 in Weight 181 lb BMI 30.1 BP 134/70 Blood Pressure Location Rt brachial Position Sitting Respiration 16 Pulse 63 Pulse Source Pulse Oximeter Temp 98.4 F Temp Source Oral Pulse Oximetry (%) 98 Oxygen Delivery Method Room Air Intake Visit Reasons: referral for general surgeons Intake Note: Pt is here today requesting a referral general surgeon for Rt side groin ? hernia Hop Strainer Required: No Allergies No Known Allergies Allergy (Verified 06/19/25 09:27) Medication List - Last Reconciled 06/19/25 by Shara Stone MD atorvastatin 10 mg PO DAILY cholecalciferol (vitamin D3) 25 mcg PO DAILY losartan 50 mg PO DAILY Tobacco use date assessed: 06/19/25 Dental Screening Dental Screen Date: 06/19/25 Did you have a dental visit in the last 12 months?: No Did you have a dental problem in the last 6 months where you did not have access to dental care?: No Was dental information given to patient?: Patient has dentist HPI referral for general surgeons HPI Details Patient complaining of a lump in his right groin which comes and goes . 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 Patient complains of slight burning pulling pain in right groin when he does yd work. Would occasionally feel lump in the right groin area which she is able to push back. History of left inguinal herniorrhaphy proximally 3 years ago Please also here for follow-up on his dyslipidemia and hypertension, blood pressure stable and controlled on losartan 50 mg daily. Has been compliant with his diet and stays active. Complaining of easy bruisability, would get a bruise after scratching vigorously or when he bumps into furniture. Denies any epistaxis or gum bleeding after brushing teeth, denies any hematochezia or hematuria PFSH Medical History Vitamin D deficiency Tubular adenoma of colon Dry skin dermatitis Impaired fasting glucose Cataracts, both eyes Dyslipidemia Surgical History S/P left inguinal hernia repair (10/03/21) Hx of colonoscopy Hx of right cataract extraction Hx of vasectomy Family History Brother Hx of seizure disorder Social History Housing: House Are you a primary hospice spiritual care coordinator to a significant other at home: No Do you presently have visiting nurse or other home services: No Alcohol intake: never Patient Tobacco Use Status: Never used Tobacco e-Cigarette/Vaping Use: Never Used Second Hand Smoke Exposure: No service: No Current occupational status: employed Cognitive needs: No Hearing needs: No Vision needs: Yes Questionnaire PHQ-9 Over the last 2 weeks, how often have you been bothered by any of the following problems? 1. Little interest or pleasure in doing things: not at all 2. Feeling down, depressed, or hopeless: not at all 3. Trouble falling or staying asleep, or sleeping too much: not at all 4. Feeling tired or having little energy: not at all 5. Poor appetite or overeating: not at all 6. Feeling bad about yourself - or that you are a failure or have let yourself or your family down: not at all 7. Trouble concentrating on things, such as reading the newspaper or watching television: not at all 8. Moving or speaking so slowly that other people could have noticed. Or the opposite - being so fidgety or restless that you have been moving around a lot more than usual: not at all 9. Thoughts that you would be better off or of hurting yourself in some way: not at all Total score: 0 Depression Screening Interpretation: Negative Depression Screening Done: Yes Source: Developed by Drs. Estuardo De Los Santos, Erika Dowell, Pihlipp Hagen and colleagues, with an educational archie from [employer]. Thrive Questionnaire Date Thrive assessed: 03/22/25 I am a: Patient What is your living situation today?: I have a steady place to live Within the past 12 months, did the food you bought not last and you didn't have the money to get more?: Never true Within the past 12 months, did you worry whether your food would run out before you got money to buy more?: Never true Do you have trouble paying for medicines?: No Do you have trouble getting transportation to medical appointments?: No Do you have trouble paying your heating and electricity bill?: No Do you have trouble taking care of your child, family member or friend?: No Do you have trouble with day-to-day activities such as bathing, preparing meals, shopping, managing finances, etc.?: No Are you currently unemployed and looking for a job?: No Are you interested in more education?: No Please select the resources that you would like help with: None Currently or been in a relationship where the following occur: No concerns reported THRIVE Score: 0 AUDIT C Alcohol Use Questionnaire (AUDIT-C) 1. How often do you have a drink containing alcohol?: Never 3. How often do you have six or more drinks on one occasion?: Never Total Score: 0 TROY-7 AMB Questionnaire TROY-7 Date TROY - 7 assessed: 03/29/25 Feeling nervous, anxious, or on edge: 0 = Not at all Not being able to stop or control worryin = Not at all Worrying too much about different things: 0 = Not at all Trouble relaxin = Not at all Being so restless that it is hard to sit still: 0 = Not at all Becoming easily annoyed or irritable: 0 = Not at all Feeling afraid as if something awful might happen: 0 = Not at all Total TROY-7 score (0-4 normal; 5-9 mild; 10-14 moderate; 15-21 severe): 0 Source: Developed by Drs. Estuardo De Los Santos, Erika Dowell, Philipp Hagen and colleagues, with an educational archie from [employer]. Review of Systems Const Denies body aches, Denies fatigue, Denies fever(s), Denies headache(s) and Denies weakness Eyes Reports no additional complaints ENT Denies dizziness and Denies headache(s) Card Denies chest pain, Denies lightheadedness, Denies palpitations and Denies dyspnea Resp Denies chest congestion, Denies cough, Denies dyspnea and Denies wheezing GI Denies abdominal pain, Denies change in bowel habits and Denies heartburn Reports as per HPI Musc Denies myalgias, Denies arthralgias, Denies muscle cramps and Denies muscle weakness Skin/Breast Reports dry skin, Denies lesions and Denies rash Neuro Denies dizziness, Denies headache(s) and Denies weakness Psych Reports no additional complaints Endo Denies fatigue and Denies palpitations Guille/Lymph Reports no additional complaints Aller/Immun Denies wheezing Physical exam (Primary Care) Vital Signs: Last Vital Signs Temp 98.4 F 06/19/25 09:04 Pulse 63 06/19/25 09:04 Resp 16 06/19/25 09:04 BP 134/70 06/19/25 09:04 Pulse Ox 98 06/19/25 09:04 Oxygen Delivery Method Room Air 06/19/25 09:04 BMI result Body Mass Index 30.1 Tobacco/Smoking Status: Tobacco use Status Tobacco use date assessed 06/19/25 06/19/25 09:08 Patient Tobacco Use Status Never used Tobacco 06/19/25 09:08 e-Cigarette/Vaping Use Never Used 06/19/25 09:08 PHQ-9: PHQ-9 Score PHQ-9: Total score 0 06/19/25 09:35 Depression Screening Interpretation: Negative Thrive Assessment: Date of Thrive Assessment Date Thrive assessed 03/22/25 06/19/25 09:08 Currently or been in a relationship where the following occur: No concerns reported Const General: comfortable and no acute distress Orientation/consciousness: patient oriented x3 HENMT Ears: external ears normal General nose exam: Normal external nose present Face and sinus: Yes face symmetric Mouth: Normal oral and palatal mucosa present and moist mucous membranes Eyes General: appearance normal, both eyes and all related structures Neck Neck: Yes full ROM, Yes no lymphadenopathy and Yes supple Resp Effort & Inspection: normal respiratory effort and able to speak in complete sentences Auscultation: clear to auscultation bilaterally Cardio Rate: regular rate Rhythm: regular rhythm Heart sounds: S1 normal heart sound present and S2 normal heart sound present GI Inspection: Yes normal to inspection Palpation (GI): Soft to palpation, nontender and no masses Auscultation: normal bowel sounds Other: Small mass palpated on right inguinal area, reducible, nontender General: Yes no CVA tenderness Male General Exam: Yes normal external exam Back/Spine/Pelvis Back: no CVA tenderness and No back tenderness Skin General skin exam: dry skin and ecchymosis (On both forearms) Neuro General: patient oriented x3, gait normal, tone normal, moves all extremities, Normal light touch and pain sensation and no focal motor deficits Cognition (Neuro): normal cognition Gait exam (Neuro): Normal gait present Extrem General: Yes full ROM, Yes no joint enlargement, Yes no pedal edema, Yes no calf tenderness and Yes normal gait Psych Appearance: grossly normal and well kempt Mental Status: mental status grossly normal Speech and movement: Normal speech and movement present Affect: normal affect Coding Level of Care Code Est Pt Level 4 (85171) Complex EM visit Add On G2211 Diagnoses Reducible right inguinal hernia K40.90 Dyslipidemia E78.5 Impaired fasting glucose R73.01 Primary hypertension I10 Hypertension type: primary hypertension Bruises easily R23.3 Assessment & Plan Assessment & Plan (1) Reducible right inguinal hernia: Code(s): K40.90 - Unilateral inguinal hernia, without obstruction or gangrene, not specified as recurrent Plan: General surgery consult ordered (2) Dyslipidemia: Code(s): E78.5 - Hyperlipidemia, unspecified Category: Medical Plan: Continue atorvastatin, fasting lipid panel ordered today (3) Impaired fasting glucose: Code(s): R73.01 - Impaired fasting glucose Category: Medical Plan: Your previous fasting blood sugars were elevated above 100 mg/dL. Impaired glucose metabolism increases the risk for developing diabetes mellitus type 2, as well as heart attack and stroke later on. Lifestyle changes that promotes weight loss, healthy eating habits, and regular exercise are important, and can prevent the progression to diabetes. fasting glucose and hemoglobin A1c were (4) HTN (hypertension): Code(s): I10 - Essential (primary) hypertension Category: Medical Qualifiers: Hypertension type: primary hypertension Qualified Code(s): I10 - Essential (primary) hypertension Plan: Blood pressure at goal of less than 130/80. Continue with losartan 50 mg daily, basic metabolic panel ordered today. Reinforced importance of following a low sodium diet, getting regular exercise, and lowering stress levels. (5) Bruises easily: Code(s): R23.3 - Spontaneous ecchymoses Plan: Will check CBC with platelet, has extremely dry skin advised to apply lotion after bathing Orders: Orders Hemoglobin A1c Today E78.5 - Hyperlipidemia, unspecified, I10 - Essential (primary) hypertension, R23.3 - Spontaneous ecchymoses, R73.01 - Impaired fasting glucose Lipid Panel Today E78.5 - Hyperlipidemia, unspecified, I10 - Essential (primary) hypertension, R23.3 - Spontaneous ecchymoses, R73.01 - Impaired fasting glucose Alanine Aminotransferase Today E78.5 - Hyperlipidemia, unspecified, I10 - Essential (primary) hypertension, R23.3 - Spontaneous ecchymoses, R73.01 - Impaired fasting glucose Basic Metabolic Panel Fasting Today E78.5 - Hyperlipidemia, unspecified, I10 - Essential (primary) hypertension, R23.3 - Spontaneous ecchymoses, R73.01 - Impaired fasting glucose Complete Blood Count Auto Diff Today E78.5 - Hyperlipidemia, unspecified, I10 - Essential (primary) hypertension, R23.3 - Spontaneous ecchymoses, R73.01 - Impaired fasting glucose Aspartate Amino Transferase Today E78.5 - Hyperlipidemia, unspecified, I10 - Essential (primary) hypertension, R23.3 - Spontaneous ecchymoses, R73.01 - Impaired fasting glucose Referrals General Surgery Referral K40.90 - Unilateral inguinal hernia, without obst ruction or gangrene, not specified as recurrent
[2025-06-19 09:04] VITALS: BP 134/70; PULSE 63; RESP 16; TEMP 36.9; O2SAT 98; BMI 30.1
== END 2025-06-19 10:14 | disposition home or self-care (01) ==
LOC: HO.HMCC 08:53
PROVIDERS: PCP Internal Medicine; Visit Provider Internal Medicine
DX: K40.90 Unilateral inguinal hernia, without obstruction or gangrene, not specified as recurrent (principal); E78.5 Hyperlipidemia, unspecified; R73.01 Impaired fasting glucose; I10 Essential (primary) hypertension; R23.3 Spontaneous ecchymoses

== ENCOUNTER 2025-08-03 08:41 | Outpatient (AMB) | payer OTHER, SELFPAY ==
--- NOTE | 2025-08-03 08:50 | A.OFFVIS_ITS ---
Vital Signs 3 08/03/25 09:02 Height 5 ft 5 in Weight 177 lb 4 oz BMI 29.5 BP 160/80 H Blood Pressure Location Lt brachial Position Sitting Pulse 59 Intake Visit Reasons: hernia Intake Note: Patient is seen in office for evaluation of a possible right inguinal hernia. Pt c/o: feel a lump for the past 6 months, increase in size, burning sensation, has been using belt to help with the hernia, uncomfortable, feel fullness, at times constapation L.OV:2021 (s/p left hernia repair) Box Blank Machine Feeder Required: No Accompanied by: Self / Same As Patient Allergies No Known Allergies Allergy (Verified 08/03/25 09:01) Medication List - Last Reconciled 08/03/25 by Dony Hamilton MD atorvastatin 10 mg PO DAILY cholecalciferol (vitamin D3) 25 mcg PO DAILY losartan 50 mg PO DAILY HPI Comments Details: The patient is a 59 year old male presenting for evaluation of an inguinal hernia. He has a history of a prior hernia repair on the contralateral side, which he notes was smaller than the current one. His current symptoms began with a burning sensation on the left side a week ago on Wednesday, which occurred while getting into his car. The burning is localized and has not recurred since he started wearing a double truss. He reports the hernia is more symptomatic with activities like yard work, coughing, and sneezing. The patient describes the current hernia as being difficult to manually reduce, unlike his previous one. He also reports hearing gurgling sounds from the hernia, which suggests possible small bowel involvement. The bulge reduces when he is lying down. [facility] Medical History Vitamin D deficiency Tubular adenoma of colon Dry skin dermatitis Impaired fasting glucose Cataracts, both eyes Dyslipidemia Surgical History S/P left inguinal hernia repair (10/03/21) Hx of colonoscopy Hx of right cataract extraction Hx of vasectomy Family History Brother Hx of seizure disorder Social History Housing: House Are you a primary auto care center manager to a significant other at home: No Do you presently have visiting nurse or other home services: No Alcohol intake: never Patient Tobacco Use Status: Never used Tobacco e-Cigarette/Vaping Use: Never Used Second Hand Smoke Exposure: No service: No Current occupational status: employed Cognitive needs: No Hearing needs: No Vision needs: Yes Review of Systems Const Details: Reports decreased appetite due to right groin pain All systems reviewed & are unremarkable except as noted in HPI and below GI Details: Audible gurgling in the region of the right inguinal hernia Musc Details: Localized burning sensation and pain in the right inguinal region especially with coughing Physical Exam Const General: cooperative and no acute distress Nutritional Appearance: well nourished Orientation/consciousness: patient oriented x3 Limitations: no limitations HEENT Head: Yes normocephalic and Yes atraumatic Ears: hearing grossly normal bilaterally Resp Effort & Inspection: normal respiratory effort, no audible wheezes, no cough and no respiratory distress Cardio Jugular venous distension: no JVD GI Other: Soft and nondistended, nontender, well-healed left inguinal incision with no evidence of recurrent left inguinal hernia. Easily identified right inguinal hernia in the standing position which increases in size with Valsalva maneuvers but does reduce in the supine position. Inspection: Yes normal to inspection Abdomen image: 2 1. Large right inguinal hernia, reducible Skin Other: Warm, dry, no rash Neuro General: patient oriented x3 Extrem General: Yes no clubbing, cyanosis or edema Assessment & Plan Assessment & Plan (1) Right inguinal hernia: Code(s): K40.90 - Unilateral inguinal hernia, without obstruction or gangrene, not specified as recurrent Category: Medical Plan 59-year-old male patient presenting with a symptomatic large right inguinal hernia which is causing increased discomfort, reduced appetite and gurgling sounds. He has requested repair of this new right inguinal hernia. On examination he is noted to have a reducible right inguinal hernia which is quite large. I recommended repair of this right inguinal hernia with mesh and after discussion of the procedure, risks and alternatives, he consents to the surgery. Coding Level of Care Code New Pt Level 4 (73721) Diagnoses Right inguinal hernia K40.90
[2025-08-03 09:02] VITALS: BP 160/80; PULSE 59; BMI 29.5
== END 2025-08-03 09:10 | disposition home or self-care (01) ==
LOC: HO.HGS 08:42
PROVIDERS: PCP Internal Medicine; Visit Provider Surgery
DX: K40.90 Unilateral inguinal hernia, without obstruction or gangrene, not specified as recurrent (principal)
CPT/HCPCS: 99204